=== PATIENT | male | born 1995 | race Caucasian/White ===

== ENCOUNTER 2019-11-18 21:58 | Emergency (ER) | payer OTHER ==
[2019-11-18] MEDS ORDERED: Tetracaine HCl/PF 0.5% 4 ML Bottle ONE (22:15)
--- NOTE | 2019-11-18 22:19 | EDM.PDOC ---
ED HPI GENERAL MEDICAL PROBLEM - General Chief Complaint: Eye Problems Stated Complaint: METAL SHAVING IN LEFT EYE Time Seen by Provider: 11/18/19 22:04 - History of Present Illness INITIAL COMMENTS - FREE TEXT/NARRATIVE: 24-year-old male presenting with corneal foreign body. The patient reports that he was felt a small piece of metal in his left eye. This was 3 days ago. He has been trying to wash it out since then but has been unsuccessful. He reports some mild blurry vision and eye discomfort. No fevers no chills no other complaints symptoms constant without exacerbating or alleviating factors radiation or other associated symptoms. L eye Pain Score (Numeric/FACES): 6 - Related Data Allergies Allergy/AdvReac Type Severity Reaction Status Date / Time No Known Allergies Allergy Verified 11/18/19 22:13 Home Meds: Home Meds . [No Known Home Meds] 11/18/19 [History] ED ROS GENERAL - Review of Systems Review Of Systems: See Below Free Text/Narrative/Comment: General: No fever. Eyes: Per HPI Neurologic: No headache. ED EXAM GENERAL W FULL EYE - Physical Exam Exam: See Below Text/Narrative:: General Appearance: No acute distress, appears comfortable Skin: No rash HEENT: Normocephalic/atraumatic, sclera anicteric, mucous membranes moist, normal lids and lashes bilaterally mild left conjunctival injection small metal lic foreign body visible in the cornea pupillary shape is normal pupils equal round reactive to light and accommodation Neck: Normal range of motion Neurologic: Awake, alert, no obvious deficits, moving all extremities Psychiatric: Appropriate, cooperative Course - Vital Signs Last Recorded V/S: Last Vital Signs Temp 97.2 F 11/18/19 22:08 Pulse 60 11/18/19 22:08 Resp 16 11/18/19 22:08 BP 113/54 L 11/18/19 22:08 Pulse Ox 97 11/18/19 22:08 - Orders/Labs/Meds Meds: Medications Discontinued Medications Generic Name Dose Route Start Last Admin Trade Name Freq PRN Reason Stop Dose Admin Tetracaine HCl Confirm 11/18/19 22:15 11/18/19 22:23 Tetracaine 0.5% Steri-Unit Digna Administered 11/18/19 22:16 Not Given Dose 4 ml .ROUTE .STK-MED ONE Tetracaine HCl 1 ml 11/18/19 22:20 11/18/19 22:23 Tetracaine 0.5% Steri-Unit Digna EYELF 11/18/19 22:21 1 ml ASDIRECTED ONE Administration Departure - Departure Time of Disposition: 22:42 Disposition: Home, Self-Care 01 Condition: Good Clinical Impression: Corneal foreign body - Discharge Information *PRESCRIPTION DRUG MONITORING PROGRAM REVIEWED*: Not Applicable *COPY OF PRESCRIPTION DRUG MONITORING REPORT IN PATIENT TAMIR: Not Applicable Instructions: Eye Foreign Body, [id number] Referrals: Salvatore Ghotra MD [Ordering Only Provider] - Forms: ED Department Discharge Additional Instructions: Please put 2 drops of the antibiotic in your left eye symptoms you wake up in the morning. Please be sure to be at the ophthalmology clinic at 9 AM on Wednesday so that Dr. Ghotra can take care of your eye. The following information is given to patients seen in the emergency department who are being discharged to home. This information is to outline your options for follow-up care. We provide all patients seen in our emergency department with a follow-up referral. The need for follow-up, as well as the timing and circumstances, are variable de pending upon the specifics of your emergency department visit. If you don't have a primary care physician on staff, we will provide you with a referral. We always advise you to contact your personal physician following an emergency department visit to inform them of the circumstance of the visit and for follow-up with them and/or the need for any referrals to a consulting specialist. The emergency department will also refer you to a specialist when appropriate. This referral assures that you have the opportunity for follow-up care with a specialist. All of these measure are taken in an effort to provide you with optimal care, which includes your follow-up. Under all circumstances we always encourage you to contact your private physician who remains a resource for coordinating your care. When calling for follow-up care, please make the office aware that this follow-up is from your recent emergency room visit. If for any reason you are refused follow-up, please contact the [facility] Emergency Department at and asked to speak to the emergency department charge nurse. Sepsis Event Note (ED) - Focused Exam Vital Signs: Vital Signs Temp Pulse Resp BP Pulse Ox 11/18/19 22:08 97.2 F 60 16 113/54 L 97 - Assessment/Plan Assessment:: 24-year-old male presenting with left eye corneal foreign body as described formal visual acuities pending will apply 2 drops of tetracaine and see if it is on the surface of the cornea based on slit-lamp exam and can be easily and atraumatically lifted out. However, after 3 days this may not be the case in which case patient will require ophthalmology referral. Acuities: 20/50 left 20/25 right 20/30 binocular On slit lamp there is a small metalic FB with a subtle rust. Pt discussed with Dr. Ghotra of opthalmology. He can see the patient in clinic at 9am tomorrow. Given photophobia like an early infection and recommends antibiotic drops and cycloplegics we will provide these. The importance of follow-up was discussed and understood.
[2019-11-18] MEDS ORDERED: Tetracaine HCl/PF 0.5% 4 ML Bottle EYELF ONE (22:20)
[2019-11-18] MEDS ORDERED: Ciprofloxacin 0.3% Ophth Soln 5 ML Bottle EYELF ONE (22:37)
[2019-11-18] MEDS ORDERED: Cyclopentolate 1% Opth Soln 2 ML Bottle EYELF ONE (22:40)
== END 2019-11-18 23:04 | disposition home or self-care (01) ==
LOC: MW.ED 21:58
DX: T15.02XA Foreign body in cornea, left eye, initial encounter (principal)
CPT/HCPCS: 65222; 99283; A9270; 99282